=== PATIENT | female | born 1995 | race Caucasian/White ===

== ENCOUNTER 2016-09-01 18:18 | Emergency (ER) | payer OTHER, MEDICAID ==
[~2016-09-01] VITALS: Ht 161.3 cm; Wt 55.8 kg
[~2016-09-01 18:18] MED LIST: BACT800T5 PO; CYCL1TAB29 PO; IBUP800T23 PO
[2016-09-01 18:24] VITALS: BP 103/70; PULSE 83; RESP 16; TEMP 98.5; O2SAT 100
[2016-09-01 18:43] LABS: BLOOD, URINE NEG (NEG); GLUCOSE,URINE NEG (NEG); KETONE, URINE NEG (NEG); NITRITE,URINE NEG (NEG); PH, URINE 6.5 (5.0-8.5)
[2016-09-01 18:49] LABS: BACTERIA, URINE FEW /hpf; COMMENT (UR) CULTURE INDICATED; CULTURE IF INDICATED CULTURE INDICATED; RBC, URINE 0-2 /hpf (0-3); SQUAMOUS EPITHELIAL CELL URINE > 8 /hpf (0-5); URINE COLOR YELLOW (YELLW/STRAW)
--- NOTE | 2016-09-01 19:39 | PD ---
HPI Chief Complaint: Abdominal Pain Time Seen by Provider: 19:30 Travel History International Travel<30 days: No Contact w/Intl Traveler<30days: No Traveled to known affect area: No History of Present Illness HPI 21-year-old female presents to the emergency department by private vehicle for evaluation of lower abdominal pain chest pain and upper back pain. Patient states that she has a history of asthma and ADHD. Patient states last period was 5 weeks ago and a home test yesterday was negative. Patient denies fever chills nausea vomiting sore throat shortness of breath pleuritic pain cough dysuria frequency urgency hematuria or flank pain vaginal discharge or vaginal bleeding. Patient has had nausea. Over the past one week she reportedly has had 3 episodes of nonbilious non-bloody emesis. Patient had a normal bowel movement today. No melena no hematochezia. Patient states that abdominal pain has been today chest pain and back pain occurred prior to arrival to the emergency department. Patient denies use of control pills. Patient does smoke cigarettes. Patient denies personal history family history of clotting disorder. Patient reports that deep breathing and palpation do not aggravate her discomfort. At worst pain has been 8/10 intensity at this time she states it's much better at 7/10 in intensity. Patient did not have a near syncopal or syncopal episode. Patient denies palpitations sweats Or lower extremity numbness tingling or weakness or ataxia of gait. No reported headache visual disturbance change in speech or change in mentation. Patient is unable to identify exacerbating or alleviating factors. Patient denies taking any medications for symptom relief. PFSH Past Medical History Narrative Medical ADHD asthma AB 3 umbilical herniorrhaphy positive tobacco use nursing notes reviewed Medical History: Denies Significant Hx ADHD: Yes Asthma: Yes Diminished Hearing: No Immunizations Current: Yes Tetanus Vaccination: Unknown Influenza Vaccination: No ?: Unknown LMP: 5 weeks ago : 4 Para: 1 Miscarriage: 3 Past Surgical History Abdominal Surgery: Yes (umbilical ) Eye Surgery: Yes (RIGHT EYE) Social History Alcohol Use: No Tobacco Use: Yes (07/21 ppd) Substance Use: No (DENIES) Allergies-Medications (Allergen,Severity, Reaction): Coded Allergies: Amoxicillin (Verified Allergy, Severe, facial swelling, 09/01/16) Penicillin (Verified Allergy, Intermediate, Swelling, 09/01/16) *MDRO Multi-Drug Resistant Organism (Verified Adverse Reaction, Unknown, ) MRSA (arm) - 07/03/16 Reported Meds & Prescriptions Reported Meds & Active Scripts Active Review of Systems Except as stated in HPI: all other systems reviewed are Neg General / Constitutional: No: Fever, Chills HENT: No: Congestion Cardiovascular: Positive: Chest Pain or Discomfort, No: Palpitations, Diaphoresis, Syncope Respiratory: No: Cough, Shortness of Breath, Wheezing Gastrointestinal: Positive: Nausea, Vomiting (x3 x1 week), Abdominal Pain, No : Diarrhea, Hematemesis, Hematochezia, Loss of Appetite Genitourinary: No: Urgency, Frequency, Dysuria, Hematuria, Pelvic Pain, Flank Pain, Discharge, Vaginal Bleeding Musculoskeletal: Positive: Pain (upper back pain), No: Myalgias, Arthralgias Skin: No Rash Neurologic: No: Weakness Psychiatric: No: Anxiety Hematologic/Lymphatic: No: Easy Bruising Physical Exam Narrative GENERAL: Well-developed well-nourished female in no acute distress no respiratory distress SKIN: Warm and dry. HEAD: Atraumatic. Normocephalic. EYES: Pupils equal and round. No scleral icterus. No injection or drainage. ENT: No nasal bleeding or discharge. Mucous membranes pink and moist. Airway is patent. NECK: Trachea midline. No JVD. Supple no meningismus no nuchal rigidity. No tenderness to palpation along the cervical spine. CARDIOVASCULAR: Regular rate and rhythm. Chest wall: Nontender to palpation. RESPIRATORY: No accessory muscle use. Clear to auscultation. Breath sounds equal bilaterally. GASTROINTESTINAL: Abdomen soft, mildly diffusely tender without guarding or rebound, nondistended. Hepatic and splenic margins not palpable. MUSCULOSKELETAL: Extremities without clubbing, cyanosis, or edema. No obvious deformities. NEUROLOGICAL: Awake and alert. No obvious cranial nerve deficits. Motor grossly within normal limits. Five out of 5 muscle strength in the arms and legs. Normal speech. PSYCHIATRIC: Appropriate mood and affect; insight and judgment normal. Data Data Last Documented VS Vital Signs Date Time Temp Pulse Resp B/P Pulse Ox O2 Delivery O2 Flow Rate FiO2 09/01/16 18:24 98.5 83 16 103/70 100 Orders Urinalysis - C+S If Indicated (09/01/16 18:29) Ed Urine Pregnancytest Poc (09/01/16 18:29) Urine Culture (09/01/16 18:35) Basic Metabolic Panel (Bmp) (09/01/16 19:31) Complete Blood Count With Diff (09/01/16 19:31) Iv Access Insert/Monitor (09/01/16 19:31) Oximetry (09/01/16 19:31) Electrocardiogram (09/01/16 19:31) Chest, Single Ap (09/01/16 19:31) Orthostatic Vital Signs (09/01/16 19:31) Labs Laboratory Tests Test 09/01/16 09/01/16 18:35 19:10 Urine Color YELLOW Urine Turbidity SLIGHT Urine pH 6.5 Urine Specific [place] 1.025 Urine Protein NEG mg/dL Urine Glucose (UA) NEG mg/dL Urine Ketones NEG mg/dL Urine Occult Blood NEG Urine Nitrite NEG Urine Bilirubin NEG Urine Leukocyte Esterase TRACE Urine RBC 0-2 /hpf Urine WBC 6-8 /hpf Urine WBC Clumps FEW Urine Squamous Epithelial > 8 /hpf Cells Urine Bacteria FEW /hpf Microscopic Urinalysis Comment CULTURE INDICATED White Blood Count 9.7 TH/MM3 Red Blood Count 4.38 MIL/MM3 Hemoglobin 12.7 GM/DL Hematocrit 37.5 % Mean Corpuscular Volume 85.6 FL Mean Corpuscular Hemoglobin 29.0 PG Mean Corpuscular Hemoglobin 33.9 % Concent Red Cell Distribution Width 14.5 % Platelet Count 232 TH/MM3 Mean Platelet Volume 8.0 FL Neutrophils (%) (Auto) 54.4 % Lymphocytes (%) (Auto) 33.2 % Monocytes (%) (Auto) 5.7 % Eosinophils (%) (Auto) 4.2 % Basophils (%) (Auto) 2.5 % Neutrophils # (Auto) 5.3 TH/MM3 Lymphocytes # (Auto) 3.2 TH/MM3 Monocytes # (Auto) 0.6 TH/MM3 Eosinophils # (Auto) 0.4 TH/MM3 Basophils # (Auto) 0.2 TH/MM3 CBC Comment DIFF FINAL Differential Comment Sodium Level 144 MEQ/L Potassium Level 3.8 MEQ/L Chloride Level 107 MEQ/L Carbon Dioxide Level 30.1 MEQ/L Anion Gap 7 MEQ/L Blood Urea Nitrogen 13 MG/DL Creatinine 0.69 MG/DL Estimat Glomerular Filtration 107 ML/MIN Rate Random Glucose 77 MG/DL Calcium Level 8.6 MG/DL [facility] Medical Decision Making Medical Screen Exam Complete: Yes Emergency Medical Condition: Yes Medical Record Reviewed: Yes Interpretation(s) EKG sinus bradycardia rate [address] elevation or injury pattern change or ectopy noted nonspecific rsr' CBC & BMP Diagram 09/01/16 19:10 Last Impressions Chest X-Ray 09/01/16 193 Signed Impressions: Service Date/Time: Thursday, September 01, 2016 19:39 - CONCLUSION: No acute disease. Clay Mayers MD poc hcg:negative ua: White cells clumped white blood cells bacteria culture indicated Differential Diagnosis Abdominal pain, gastritis, peptic ulcer disease, biliary colic, UTI, partial small bowel obstruction, ectopic , ruptured ovarian cyst, ovarian torsion renal colic, atypical chest pain, pleurisy, gastritis, pneumonia, pneumothorax, ACS, PE Narrative Course Patient with multiple areas of complaints. Past one day and to a lesser extent over the past 5 days with reportedly negative home test. Urinalysis [id number] chest x-ray EKG CBC and metabolic panel studies ordered orthostatics performed [id number] hCG negative; urinalysis shows evidence of white blood cells few bacteria and culture is indicated; patient administer Toradol 30 mg IV Resolved after Toradol patient feels well voices no complaints and no pain; patient is aware of imaging results EKG and lab results and need for oral antibiotic and is stable for outpatient management Diagnosis Primary Impression: UTI (urinary tract infection) Additional Impression: Atypical chest pain Referrals: Primary Care Physician call for appointment Patient Instructions: General Instructions Departure Forms: Tests/Procedures, Work Release Special Instructions: no work x 1 day Additional Instructions: Complete course of antibiotic as prescribed Follow-up with your primary care provider May use acetaminophen/Tylenol every 4 hours as needed for fever 100.4F or greater May use ibuprofen/Advil/Motrin every 6-8 hours as needed for fever 100.4F or greater or for pain associated inflammation Return to the emergency department for any concerns or change in condition Med/Other Pt SpecificInfo: Prescription(s) given Scripts Nitrofurantoin Monohydrate Macrocrystals (Macrobid)100 Mg [id number] Mg PO BID 10 Days Ref 0 Prov:Shanika Gomez MD 09/01/16 Disposition: 01 DISCHARGE HOME Condition: Stable Shanika Gomez MD Sep 01, 2016 19:39
[2016-09-01 19:56] LABS: AUTOMATED NEUTROPHIL # 5.3 TH/MM3 (1.8-7.7); BASOPHIL # 0.2 TH/MM3 (0-0.2); BASOPHIL % 2.5 % (0.0-2.0); EOSINOPHIL # 0.4 TH/MM3 (0-0.4); EOSINOPHIL % 4.2 % (0.0-4.0); HEMATOCRIT 37.5 % (35.0-46.0); HEMO FLAGS DIFF FINAL; LYMPH % 33.2 % (9.0-44.0); LYMPHOCYTE # 3.2 TH/MM3 (1.0-4.8); MEAN CELL VOLUME 85.6 FL (80.0-100.0); MEAN CORPUSCULAR HGB CONC 33.9 % (32.0-36.0); MONO % 5.7 % (0.0-8.0); NEUT % 54.4 % (16.0-70.0); PLATELET COUNT 232 TH/MM3 (150-450); RED BLOOD COUNT 4.38 MIL/MM3 (4.00-5.30); RED CELL DISTRIBUTION WIDTH 14.5 % (11.6-17.2); WHITE BLOOD COUNT 9.7 TH/MM3 (4.0-11.0)
[2016-09-01 20:05] LABS: POTASSIUM 3.8 MEQ/L (3.5-5.1)
--- NOTE | 2016-09-01 20:06 | RADHPO ---
EXAM DATE/TIME: 09/01/2016 19:39 [facility] COMPARISON: CHEST SINGLE AP, June 29, 2015, 19:52. INDICATIONS : Upper back and chest pain since yesterday. MEDICAL HISTORY : None. SURGICAL HISTORY : None. ENCOUNTER: Initial ACUITY: 2 days PAIN SCORE: 10/10 LOCATION: Bilateral chest FINDINGS: A single view of the chest demonstrates the lungs to be symmetrically aerated without evidence of mas s, infiltrate or effusion. The cardiomediastinal contours are unremarkable. There is a mild dextrocu rvature of the thoracic spine. CONCLUSION: No acute disease. Clay Mayers MD on September 01, 2016 at 20:04 Board Certified Radiologist. This report was verified electronically.
[2016-09-01 20:08] LABS: BICARBONATE 30.1 MEQ/L (21.0-32.0)
[2016-09-01 20:15] VITALS: BP_SYST 101; BP_SYST 102; BP_SYST 103; BP_DIAS 58; BP_DIAS 61; BP_DIAS 64; RESP 16
[2016-09-01] MEDS ORDERED: MACR100C2 PO (20:40)
--- NOTE | 2016-09-02 09:26 | EKG ---
Date Performed: 09/01/2016 Time Performed: 19:38:42 PTAGE: 21 years EKG: Sinus bradycardia with sinus arrhythmia. Prolonged QT interval Septal T wave changes are no nspecific Borderline ECG PREVIOUS TRACING : 06/29/2015 19.16 Compared to prior tracing no significant change DOCTOR: Kael Cash Interpretating Date/Time 09/02/2016 09:23:57
== END 2016-09-01 20:48 | disposition home or self-care (01) ==
LOC: PHED 18:18
DX: N39.0 Urinary tract infection, site not specified (principal); R07.89 Other chest pain; M54.6 Pain in thoracic spine; R11.2 Nausea with vomiting, unspecified; R94.31 Abnormal electrocardiogram [ECG] [EKG]; F17.200 Nicotine dependence, unspecified, uncomplicated; Z86.59 Personal history of other mental and behavioral disorders; Z87.09 Personal history of other diseases of the respiratory system
CPT/HCPCS: 71010; 80048; 81001; 84703; 85025; 87086; 93005

== ENCOUNTER 2017-01-30 15:45 | Emergency (ER) | payer MEDICAID ==
[~2017-01-30] VITALS: Ht 160 cm; Wt 56.0 kg
[~2017-01-30 15:45] MED LIST changes: -BACT800T5 PO; -CYCL1TAB29 PO; -IBUP800T23 PO; +MACR100C2 PO
[2017-01-30 15:47] VITALS: BP 96/63; PULSE 67; RESP 16; TEMP 98.2; O2SAT 99
[2017-01-30] MEDS ORDERED: CLIN1CAP5 PO (16:38)
--- NOTE | 2017-01-30 16:40 | PD ---
HPI . possible right upper jaw infection Chief Complaint: Oral / Dental Pain or Problem Time Seen by Provider: 16:40 Travel History International Travel<30 days: No Contact w/Intl Traveler<30days: No Traveled to known affect area: No History of Present Illness HPI 21-year-old female with known dental issues here with complaints of right upper jaw pain. Patient says that she was seen by her dentist and told that she needed 6 extractions, but could not afford them. She was given clindamycin and told to take it until her pain subsides. She had taken with clindamycin and her pain improved, therefore she stopped the medications. Approximately 3 days later the pain has returned and patient is here requesting more antibiotics. Some very mild upper facial swelling. She denies any fever or chills. PFSH Past Medical History ADHD: Yes Asthma: Yes Diminished Hearing: No Immunizations Current: Yes : 4 Para: 1 Miscarriage: 3 Past Surgical History Abdominal Surgery: Yes (umbilical ) Eye Surgery: Yes (RIGHT EYE) Social History Alcohol Use: No Tobacco Use: Yes (1/2 ppd) Substance Use: No (DENIES) Allergies-Medications (Allergen,Severity, Reaction): Coded Allergies: Amoxicillin (Verified Allergy, Severe, facial swelling, 01/30/17) Penicillin (Verified Allergy, Intermediate, Swelling, 01/30/17) *MDRO Multi-Drug Resistant Organism (Verified Adverse Reaction, Unknown, ) MRSA (arm) - 07/03/16 Reported Meds & Prescriptions Reported Meds & Active Scripts Active Ibuprofen 800 Mg Tab 800 Mg PO TID Tramadol (Tramadol HCl) 50 Mg Tab 50 Mg PO Q8H PRN Reported Clindamycin (Clindamycin HCl) 150 Mg Cap 125 Mg PO Q6H Review of Systems General / Constitutional: No: Fever Eyes: No: Visual changes HENT: Positive: Dental Difficulties, No: Headaches Cardiovascular: No: Chest Pain or Discomfort Respiratory: No: Shortness of Breath Gastrointestinal: No: Abdominal Pain Genitourinary: No: Dysuria Musculoskeletal: No: Pain Skin: No Rash Neurologic: No: Weakness Psychiatric: No: Depression Endocrine: No: Polydipsia Hematologic/Lymphatic: No: Easy Bruising Physical Exam Narrative GENERAL: AAO x 3, no acute distress, Well-nourished, well-developed patient. SKIN: Warm and dry. No visible rashes or bruising. HEAD: Normocephalic and atraumatic. EYES: No scleral icterus. No injection or drainage. ENT: No nasal drainage noted. Mucous membranes pink. Airway patent. + 2 cracked and rotting. # 15 also cracked and rotting. no fluid collection, no gum line abn. no definite abscess. NECK: Supple, trachea midline. No JVD. no lymphadenopathy CARDIOVASCULAR: Regular rate and rhythm without murmurs, gallops, or rubs. RESPIRATORY: Breath sounds equal bilaterally. No accessory muscle use. No rhonchi or rales. GASTROINTESTINAL:visual inspection normal EXTREMITIES: No cyanosis or edema. BACK: No obvious deformity. NEURO: CN II-12 intact, PSYCH: AAO x 3, normal affect. Data Data Last Documented VS Vital Signs Date Time Temp Pulse Resp B/P Pulse Ox O2 Delivery O2 Flow Rate FiO2 01/30/17 15:47 98.2 67 16 96/63 99 MDM Medical Decision Making Medical Screen Exam Complete: Yes Emergency Medical Condition: Yes Medical Record Reviewed: Yes Differential Diagnosis Dentalgia, dental caries, less likely oral abscess Narrative Course 21-year-old female with known dental issues here with complaints of tooth pain. exam was done and she does not appear to have any abscessed teeth or active gum infection I've explained to her that she does not need antibiotics as there is no active infection. She needs a dentist for extraction as soon as possible. I provided her with resources for the [facility] dentist. I will provide her with some ibuprofen for inflammation and tramadol for pain control. I've explained to her that this is a temporary fix and ultimately she will need to have these teeth extracted. I discussed with Dr. Saldivar. Patient verbalized understanding of instructions, questions were answered, and thanked me for their care. I advised them if their condition worsens, please return to the nearest emergency room for further care. Diagnosis Primary Impression: Dentalgia Additional Impression: Dental caries Patient Instructions: General Instructions Additional Instructions: You need to see a dentist as soon as possible for removal of these rotting teeth. Try to keep these teeth as clean as possible to reduce the chance of infection. Med/Other Pt SpecificInfo: Prescription(s) given Scripts Ibuprofen 800 Mg [id number] Mg PO TID #21 TAB Prov:Yue Saldivar DO 01/30/17 Tramadol 50 Mg Tab50 Mg PO Q8H PRN (PAIN) #10 TAB Ref 0 Prov:SaldivarYue Johnna DAWKINS 01/30/17 Disposition: 01 DISCHARGE HOME Condition: Stable Denise Escobedo Jan 30, 2017 16:40
[2017-01-30] MEDS ORDERED: TRAM50TA PO (16:48)
[2017-01-30] MEDS ORDERED: IBUP800T23 PO (16:48)
== END 2017-01-30 16:56 | disposition home or self-care (01) ==
LOC: PHED 15:45 → PHEFT 16:56
DX: K08.89 Other specified disorders of teeth and supporting structures (principal); K02.9 Dental caries, unspecified; F17.210 Nicotine dependence, cigarettes, uncomplicated
CPT/HCPCS: 99283

== ENCOUNTER 2017-07-17 21:44 | Emergency (ER) | payer MEDICAID, OTHER ==
[~2017-07-17] VITALS: Ht 160 cm; Wt 53.3 kg
[~2017-07-17 21:44] MED LIST changes: +CLIN150C14 PO; +IBUP1TAB7 PO; -MACR100C2 PO; +TRAM50TA PO
[2017-07-17 21:59] VITALS: BP 133/68; PULSE 69; RESP 18; TEMP 98.6; O2SAT 100
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
[2017-07-17] MEDS ORDERED: ACETAMINOPHEN 500 MG CPLT PO ONE (22:30)
[2017-07-17 22:46] LABS: AUTOMATED NEUTROPHIL # 2.1 TH/MM3 (1.8-7.7); BASOPHIL # 0.1 TH/MM3 (0-0.2); BASOPHIL % 1.4 % (0.0-2.0); EOSINOPHIL # 0.1 TH/MM3 (0-0.4); EOSINOPHIL % 1.4 % (0.0-4.0); HEMATOCRIT 38.4 % (35.0-46.0); HEMOGLOBIN 12.7 GM/DL (11.6-15.3); LYMPH % 48.8 % (9.0-44.0); LYMPHOCYTE # 2.4 TH/MM3 (1.0-4.8); MEAN CELL VOLUME 85.8 FL (80.0-100.0); MEAN CORPUSCULAR HEMOGLOBIN 28.4 PG (27.0-34.0); MEAN CORPUSCULAR HGB CONC 33.1 % (32.0-36.0); MEAN PLATELET VOLUME 7.7 FL (7.0-11.0); MONO % 7.6 % (0.0-8.0); MONOCYTE # 0.4 TH/MM3 (0-0.9); NEUT % 40.8 % (16.0-70.0); PLATELET COUNT 292 TH/MM3 (150-450); RED BLOOD COUNT 4.48 MIL/MM3 (4.00-5.30); RED CELL DISTRIBUTION WIDTH 13.9 % (11.6-17.2); WHITE BLOOD COUNT 5.1 TH/MM3 (4.0-11.0)
[2017-07-17 22:47] LABS: BILIRUBIN, URINE NEG (NEG); BLOOD, URINE NEG (NEG); GLUCOSE,URINE NEG (NEG); KETONE, URINE NEG (NEG); NITRITE,URINE NEG (NEG); URINE LEUKOCYTE ESTERASE NEG (NEG)
--- NOTE | 2017-07-17 22:51 | RADRPT ---
EXAM DATE/TIME: 07/17/2017 22:38 [facility] COMPARISON: CHEST SINGLE AP, September 01, 2016, 19:39. INDICATIONS : Chest pain. MEDICAL HISTORY : Hernia, umbilical SURGICAL HISTORY : None. ENCOUNTER: Initial ACUITY: 1 day PAIN SCORE: 7/10 LOCATION: Bilateral chest FINDINGS: A single view of the chest demonstrates the lungs to be symmetrically aerated without evidence of mas s, infiltrate or effusion. The cardiomediastinal contours are unremarkable. Osseous structures are intact. CONCLUSION: No acute disease. Ángel Solitario MD on July 17, 2017 at 22:49 Board Certified Radiologist. This report was verified electronically.
[2017-07-17 22:53] LABS: URINE COLOR YELLOW (YELLW/STRAW)
[2017-07-17 22:54] LABS: BACTERIA, URINE RARE /hpf; RBC, URINE 0-3 /hpf (0-3)
[2017-07-17 22:55] LABS: CHLORIDE 105 MEQ/L (98-107); SODIUM (NA) 138 MEQ/L (136-145)
[2017-07-17 22:58] LABS: CALCIUM 8.1 MG/DL (8.5-10.1)
[2017-07-17 22:59] LABS: ALBUMIN 3.2 GM/DL (3.4-5.0); BICARBONATE 27.7 MEQ/L (21.0-32.0); BLOOD UREA NITROGEN 10 MG/DL (7-18); GLUCOSE,RANDOM 77 MG/DL (74-106)
[2017-07-17 23:02] LABS: ALT (GPT) 12 U/L (10-53); AST (GOT) 12 U/L (15-37); CREATININE 0.55 MG/DL (0.50-1.00); GLOMERULAR FILTRATION RATE 138 ML/MIN (>89)
[2017-07-17 23:03] LABS: INTERNATIONAL NORMALIZED RATIO 1.1 RATIO; PROTHROMBIN TIME - PATIENT 11.2 SEC (9.8-11.6); TOTAL BILIRUBIN ADULT 0.2 MG/DL (0.2-1.0)
[2017-07-17 23:04] LABS: TOTAL PROTEIN 6.8 GM/DL (6.4-8.2)
[2017-07-17 23:05] LABS: ALKALINE PHOSPHATASE 80 U/L (45-117)
[2017-07-17 23:07] LABS: TROPONIN I LESS THAN 0.02 NG/ML (0.02-0.05)
[2017-07-17] MEDS ORDERED: NITROFURANTOIN MONOHYD MACROCR 100 MG CAP PO ONE (23:15)
[2017-07-17 23:30] VITALS: BP 125/88; PULSE 95; RESP 18; O2SAT 98
[2017-07-17] MEDS ORDERED: MACR100C2 PO (23:45)
[2017-07-18] MEDS ORDERED: OSELTAMIVIR PHOSPHATE 75 MG CAP PO ONE
[2017-07-18] MEDS ORDERED: OSEL75 PO (00:01)
--- NOTE | 2017-07-18 00:41 | RADRPT ---
EXAM DATE/TIME: 07/18/2017 00:10 [facility] COMPARISON: No previous studies available for comparison. INDICATIONS : Pelvic pain. LAB(S): Beta-hC MEDICAL HISTORY : Asthma. Umbilical hernia. SURGICAL HISTORY : Umbilical hernia repair. Right eye surgery. ENCOUNTER: Subsequent ACUITY: 2 days PAIN SCORE: 1/10 LOCATION: Bilateral pelvis MEASUREMENTS: UTERUS: 8.1 x 6.4 x 4.9 cm ENDOMETRIAL STRIPE: 13 mm RIGHT OVARY: 3.2 x 2.0 x 2.0 cm LEFT OVARY: 3.3 x 2.3 x 1.7 cm FREE FLUID: Yes CROWN RUMP LENGTH: 0.5 = 6 WKS 1 DAYS FHR: 130.76 BPM FINDINGS: Gestational sac, yolk sac and pole seen within the uterine cavity. [place]-rump length is approxi mately 4.5 mm which corresponds to a gestational age of 6 weeks one day. heart tones are demons trated. No evidence of hemorrhage. Both ovaries are normal. There small, simple appearing free fluid in the pelvic cul-de-sac. CONCLUSION: 1. Single, viable intrauterine at approximate 6 weeks one day gestational age. No subchorio rosie hemorrhage or other acute complication demonstrated. 2. Normal ultrasound appearance of both ovaries. 3. Small, nonspecific free fluid in the pelvic cavity. Clay Rincon MD on July 18, 2017 at 0:37 Board Certified Radiologist. This report was verified electronically.
[2017-07-18 01:00] VITALS: BP 122/78; PULSE 95; RESP 18; TEMP 98.8; O2SAT 97
--- NOTE | 2017-07-18 01:27 | PD ---
Physical Exam Time Seen by Provider: 01:21 Narrative Left this patient with me to check the results of the ultrasound, other imaging and laboratory work and make a disposition. Data Data Last Documented VS Vital Signs Date Time Temp Pulse Resp B/P (MAP) Pulse Ox O2 Delivery O2 Flow Rate FiO2 07/18/17 01:00 98.8 95 18 122/78 (93) 97 Room Air Orders Orders Complete Blood Count With Diff (07/17/17 22:19) Comprehensive Metabolic Panel (07/17/17 22:19) Urinalysis - C+S If Indicated (07/17/17 22:19) Ed Urine Pregnancytest Poc (07/17/17 22:19) Ckmb (Isoenzyme) Profile (07/17/17 22:19) Prothrombin Time / Inr (Pt) (07/17/17 22:19) Act Partial Throm Time (Ptt) (07/17/17 22:19) Troponin I (07/17/17 22:19) Chest, Single Ap (07/17/17 22:19) Acetaminophen (Tylenol) (07/17/17 22:30) Influenzae A/B Antigen (07/17/17 22:19) Beta Hcg (Quant/Titer) (07/17/17 22:19) Nitrofurantoin Monohyd Macrocr (Macrobid (07/17/17 23:15) Oseltamivir (Tamiflu) (07/18/17 00:00) Us Pelvis (Ques Preg/Ectopic) (07/18/17 ) Electrocardiogram (07/18/17 01:08) Labs Laboratory Tests Test 07/17/17 22:32 White Blood Count 5.1 TH/MM3 Red Blood Count 4.48 MIL/MM3 Hemoglobin 12.7 GM/DL Hematocrit 38.4 % Mean Corpuscular Volume 85.8 FL Mean Corpuscular Hemoglobin 28.4 PG Mean Corpuscular Hemoglobin Concent 33.1 % Red Cell Distribution Width 13.9 % Platelet Count 292 TH/MM3 Mean Platelet Volume 7.7 FL Neutrophils (%) (Auto) 40.8 % Lymphocytes (%) (Auto) 48.8 % Monocytes (%) (Auto) 7.6 % Eosinophils (%) (Auto) 1.4 % Basophils (%) (Auto) 1.4 % Neutrophils # (Auto) 2.1 TH/MM3 Lymphocytes # (Auto) 2.4 TH/MM3 Monocytes # (Auto) 0.4 TH/MM3 Eosinophils # (Auto) 0.1 TH/MM3 Basophils # (Auto) 0.1 TH/MM3 CBC Comment DIFF FINAL Differential Comment Prothrombin Time 11.2 SEC Prothromb Time International Ratio 1.1 RATIO Activated Partial Thromboplast Time 30.2 SEC Urine Color YELLOW Urine Turbidity SLIGHT Urine pH 7.0 Urine Specific [place] 1.029 Urine Protein NEG mg/dL Urine Glucose (UA) NEG mg/dL Urine Ketones NEG mg/dL Urine Occult Blood NEG Urine Nitrite NEG Urine Bilirubin NEG Urine Leukocyte Esterase NEG Urine RBC 0-3 /hpf Urine WBC 3-5 /hpf Urine Squamous Epithelial Cells 6-8 /hpf Urine Bacteria RARE /hpf Microscopic Urinalysis Comment CULT NOT INDICATED Blood Urea Nitrogen 10 MG/DL Creatinine 0.55 MG/DL Random Glucose 77 MG/DL Total Protein 6.8 GM/DL Albumin 3.2 GM/DL Calcium Level 8.1 MG/DL Alkaline Phosphatase 80 U/L Aspartate Amino Transf (AST/SGOT) 12 U/L Alanine Aminotransferase (ALT/SGPT) 12 U/L Total Bilirubin 0.2 MG/DL Sodium Level 138 MEQ/L Potassium Level 3.7 MEQ/L Chloride Level 105 MEQ/L Carbon Dioxide Level 27.7 MEQ/L Anion Gap 5 MEQ/L Estimat Glomerular Filtration Rate 138 ML/MIN Total Creatine Kinase 35 U/L Troponin I LESS THAN 0.02 NG/ML Human Chorionic Gonadotropin, Quant 23787 MIU/ML [facility] Medical Record Reviewed: Yes Supervised Visit with BARBARA: No Interpretation(s) The ultrasound of the pelvis shows single viable intrauterine at approximately 6 weeks and 1 day gestational age. No subchorionic hemorrhage or other acute complication demonstrated. There is a normal ultrasound appearance of both ovaries and small nonspecific free fluid in the pelvic cavity. The APTT is 30.2 but the rest of the coagulation profile is normal. The influenza A /B antigen is positive for flu a and antigen. The chest x-ray shows no acute disease. The urine is normal and culture is not indicated. The complete metabolic profile shows an albumin of 3.2, calcium 8.1 but is otherwise normal. The cardiac enzymes are normal. The beta-hCG is 22,217. The CBC is normal. The EKG shows sinus rhythm with no acute ST elevation or depression. The rate is 61. Differential Diagnosis Threatened AB, urinary tract infection, flu syndrome, viral syndrome, anemia, cardiac dysrhythmia, electrolyte disorder, acute coronary syndrome, pneumothorax , coagulopathy, ectopic Narrative Course The patient has a flu syndrome, influenza A as well as an intrauterine 6 weeks. 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 Take Macrobid as prescribed. Return to the emergency department for worsening symptoms or any other concerns. Scripts Oseltamivir (Tamiflu) 75 Mg Cap 75 MG PO BID for Mgmt Viral Infection for 5 Days, #10 CAP 0 Refills Prov: Fish Quiñonez MD 07/18/17 Nitrofurantoin Monohydrate Macrocrystals (Macrobid) 100 Mg Cap 100 MG PO BID for Infection for 7 Days, #14 CAP 0 Refills Prov: Fish Quiñonez MD 07/17/17 Disposition: 01 DISCHARGE HOME Condition: Stable Saúl Dunaway MD Jul 18, 2017 01:27
--- NOTE | 2017-07-18 22:29 | EKG ---
Date Performed: 07/17/2017 Time Performed: 21:58:42 PTAGE: 22 years EKG: Sinus rhythm POSSIBLE RIGHT VENTRICULAR CONDUCTION DELAY BORDERLINE ECG Compared to the PREVIOUS TRACING from 09/01/16, no significant change DOCTOR: Ricky Hassan Interpretating Date/Time 07/18/2017 22:28:18
== END 2017-07-18 01:35 | disposition home or self-care (01) ==
LOC: PHED 21:44
DX: O98.511 Other viral diseases complicating pregnancy, first trimester (principal); J10.1 Influenza due to other identified influenza virus with other respiratory manifestations; O26.891 Other specified pregnancy related conditions, first trimester; R82.71 Bacteriuria; O99.331 Smoking (tobacco) complicating pregnancy, first trimester; F17.210 Nicotine dependence, cigarettes, uncomplicated; O99.511 Diseases of the respiratory system complicating pregnancy, first trimester; J45.909 Unspecified asthma, uncomplicated; Z3A.01 Less than 8 weeks gestation of pregnancy
CPT/HCPCS: 71010; 76700; 80053; 81001; 82550; 84484; 84702; 84703; 85025; 85610; 85730; 87804; 93005

== ENCOUNTER 2017-08-03 10:06 | Emergency (ER) | payer OTHER ==
[~2017-08-03 10:06] MED LIST changes: +MACR100C2 PO; +OSEL75 PO
[2017-08-03 10:10] VITALS: BP 112/68; PULSE 119; RESP 20; TEMP 99.6; O2SAT 99
--- NOTE | 2017-08-03 12:05 | PD ---
HPI Chief Complaint: Musculoskeletal Complaint Time Seen by Provider: 11:57 Travel History International Travel<30 days: No Contact w/Intl Traveler<30days: No Traveled to known affect area: No History of Present Illness HPI This 22-year-old female is complaining of sore throat and knee pain. Says the throat started hurting yesterday. Both knees are hurting today. She's had fever. She had a miscarriage the second of this month was seen at [facility] and given pills to clean her out. She says she is definitely not now. She has trouble swallowing PFSH Past Medical History ADHD: Yes Asthma: Yes Diminished Hearing: No Immunizations Current: Yes : 7 Para: 1 Miscarriage: 5 Past Surgical History Abdominal Surgery: Yes (umbilical HERNIA) Eye Surgery: Yes (RIGHT EYE) Social History Alcohol Use: No Tobacco Use: Yes (07/21 ppd) Substance Use: No (DENIES) Allergies-Medications (Allergen,Severity, Reaction): Coded Allergies: amoxicillin (Unverified Allergy, Severe, facial swelling, 08/03/17) penicillin G (Unverified Allergy, Intermediate, Swelling, 08/03/17) *MDRO Multi-Drug Resistant Organism (Verified Adverse Reaction, Unknown, ) MRSA (arm) - 07/03/16 Reported Meds & Prescriptions Reported Meds & Active Scripts Active No Active Prescriptions or Reported Medications Review of Systems General / Constitutional: Positive: Fever, Chills Eyes: No: Diploplia, Blurred Vision HENT: No: Headaches, Vertigo Cardiovascular: No: Chest Pain or Discomfort, Palpitations Respiratory: Positive: Cough, No: Shortness of Breath Gastrointestinal: No: Nausea, Vomiting Genitourinary: No: Urgency, Frequency Musculoskeletal: Positive: Myalgias, Arthralgias Skin: No Rash, No Itching Neurologic: No: Dizziness Hematologic/Lymphatic: No: Easy Bruising Physical Exam Narrative GENERAL: Well-developed female SKIN: Focused skin assessment warm/dry. HEAD: Atraumatic. Normocephalic. EYES: Pupils equal and round. No scleral icterus. No injection or drainage. ENT: No nasal bleeding or discharge. Mucous membranes pink and moist. Pharynx is erythematous with yellow exudate NECK: Trachea midline. No JVD. CARDIOVASCULAR: Regular rate and rhythm. No murmur appreciated. RESPIRATORY: No accessory muscle use. Clear to auscultation. Breath sounds equal bilaterally. GASTROINTESTINAL: Abdomen soft, non-tender, nondistended. Hepatic and splenic margins not palpable. MUSCULOSKELETAL: No obvious deformities. No clubbing. No cyanosis. No edema. Examination of both knees shows some periarticular tenderness. There is no erythema or fluid in either knee NEUROLOGICAL: Awake and alert. No obvious cranial nerve deficits. Motor grossly within normal limits. Normal speech. PSYCHIATRIC: Appropriate mood and affect; insight and judgment normal. Data Data Last Documented VS Vital Signs Date Time Temp Pulse Resp B/P (MAP) Pulse Ox O2 Delivery O2 Flow Rate FiO2 08/03/17 10:10 99.6 119 20 112/68 (83) 99 Orders Orders Group A Rapid Strep Screen (08/03/17 12:01) Influenzae A/B Antigen (08/03/17 12:01) Acetaminophen (Tylenol) (08/03/17 12:15) Ibuprofen (Motrin) (08/03/17 12:15) Strep Culture (Group A) (08/03/17 12:08) MDM Medical Decision Making Medical Screen Exam Complete: Yes Emergency Medical Condition: Yes Medical Record Reviewed: Yes Differential Diagnosis Differential includes strep throat, influenza, viral syndrome Narrative Course Test for strep is negative. Tests for influenza is also negative. Patient will be released with recommendations for Tylenol and Motrin for fever. She is to be off work for several days Diagnosis Primary Impression: Viral pharyngitis Departure Forms: Tests/Procedures, Work Release Enter return to work date: Aug 06, 2017 Additional Instructions: Take Tylenol or Motrin for fever Scripts No Active Prescriptions or Reported Meds Disposition: 01 DISCHARGE HOME Condition: [place] MD Aug 03, 2017 12:05
[2017-08-03] MEDS ORDERED: IBUPROFEN 600 MG TAB PO ONE (12:15)
[2017-08-03] MEDS ORDERED: ACETAMINOPHEN 325 MG TAB PO ONE (12:15)
[2017-08-03 13:11] VITALS: BP 98/58
== END 2017-08-03 13:12 | disposition home or self-care (01) ==
LOC: PHED 10:06
DX: J02.0 Streptococcal pharyngitis (principal); B95.4 Other streptococcus as the cause of diseases classified elsewhere; F90.9 Attention-deficit hyperactivity disorder, unspecified type; J45.909 Unspecified asthma, uncomplicated; F17.210 Nicotine dependence, cigarettes, uncomplicated; Z88.0 Allergy status to penicillin
CPT/HCPCS: 87081; 87804; 87880; 99283

== ENCOUNTER 2017-08-31 10:01 | Emergency (ER) | payer OTHER ==
[~2017-08-31] VITALS: Ht 160 cm; Wt 55.0 kg
[2017-08-31 10:03] VITALS: BP 111/65; PULSE 109; RESP 14; TEMP 97.6; O2SAT 100
[2017-08-31 11:06] VITALS: BP 93/55; PULSE 63; RESP 17; O2SAT 100
[2017-08-31] MEDS ORDERED: SODIUM CHLOR 0.9% 1000 ML INJ 1,000 ML IV ONE (11:42)
--- NOTE | 2017-08-31 11:42 | PD ---
HPI Chief Complaint: Bleeding Time Seen by Provider: 11:17 Travel History International Travel<30 days: No Contact w/Intl Traveler<30days: No Traveled to known affect area: No History of Present Illness HPI 22-year-old female presents emergency department with vaginal bleeding and pelvic pain. Patient reports last menstrual period prior to several days ago was June 16. Patient states approximately 3 days ago she started having cramping and vaginal bleeding. She was seen at [facility] yesterday, and reportedly her hCG was 2100, and they did an ultrasound showing "blood inside the uterus." Patient was reportedly given 8 pills to take to help pass the products of conception. She does not recall the name of the medication. She comes in today with ongoing vaginal bleeding with at least one pad an hour and passing clots. Patient also complaining of lower abdominal/pelvic pain of an 8 out of 10. She denies nausea, vomiting, fever, or other symptoms. Patient is allergic to amoxicillin and penicillin. She has a history of MRSA. [facility] Past Medical History ADHD: Yes Asthma: Yes Bipolar Disorder: Yes Diminished Hearing: No Immunizations Current: Yes Tetanus Vaccination: Unknown Influenza Vaccination: No ?: Not LMP: CURRENT : 7 Para: 1 Miscarriage: 5 Past Surgical History Abdominal Surgery: Yes (umbilical HERNIA) Eye Surgery: Yes (RIGHT EYE) Social History Alcohol Use: Yes (occass) Tobacco Use: Yes (/2 ppd) Substance Use: Yes (MARIJUANA OCC) Allergies-Medications (Allergen,Severity, Reaction): Coded Allergies: amoxicillin (Unverified Allergy, Severe, facial swelling, 08/31/17) penicillin G (Unverified Allergy, Intermediate, Swelling, 08/31/17) *MDRO Multi-Drug Resistant Organism (Verified Adverse Reaction, Unknown, ) MRSA (arm) - 07/03/16 Reported Meds & Prescriptions Reported Meds & Active Scripts Active No Active Prescriptions or Reported Medications Review of Systems Except as stated in HPI: all other systems reviewed are Neg General / Constitutional: No: Fever, Chills Eyes: No: Visual changes HENT: No: Headaches Cardiovascular: No: Chest Pain or Discomfort Respiratory: No: Shortness of Breath Gastrointestinal: No: Abdominal Pain Genitourinary: Positive: Pelvic Pain, Vaginal Bleeding, No: Urgency, Frequency , Dysuria Musculoskeletal: No: Pain Skin: No Rash Neurologic: No: Weakness Psychiatric: No: Depression Endocrine: No: Polydipsia Hematologic/Lymphatic: No: Easy Bruising Physical Exam Narrative GENERAL: Patient appears in mild distress. SKIN: Warm and dry. Normal color. Normal turgor. HEAD: Atraumatic. Normocephalic. EYES: Pupils equal and round. No scleral icterus. No injection or drainage. ENT: No nasal bleeding or discharge. Mucous membranes pink and moist. Pharynx is clear. Airways patent. NECK: Trachea midline. Supple and nontender. CARDIOVASCULAR: Regular rate and rhythm. No murmurs gallops or rubs. RESPIRATORY: No accessory muscle use. Clear to auscultation. Breath sounds equal bilaterally. GASTROINTESTINAL: Abdomen soft, moderate suprapubic tenderness, nondistended. No CVA tenderness. Hepatic and splenic margins not palpable. Pelvic exams performed with nursing staff in attendance, showing seth blood in the vaginal vault, loss appears to be open without obvious products of conception noted. There are several clots noted to be in the vagina. MUSCULOSKELETAL: Extremities without clubbing, cyanosis, or edema. No obvious deformities. NEUROLOGICAL: Awake and alert. No obvious cranial nerve deficits. Motor grossly within normal limits. Five out of 5 muscle strength in the arms and legs. Normal speech. PSYCHIATRIC: Appropriate mood and affect; insight and judgment normal. Data Data Last Documented VS Vital Signs Date Time Temp Pulse Resp B/P (MAP) Pulse Ox O2 Delivery O2 Flow Rate FiO2 08/31/17 11:06 17 08/31/17 11:06 63 93/55 (68) 100 Room Air 08/31/17 10:03 97.6 Orders Orders Complete Blood Count With Diff (08/31/17 11:42) Comprehensive Metabolic Panel (08/31/17 11:42) Complete Rh (08/31/17 11:42) Type And Screen (08/31/17 11:42) Iv Access Insert/Monitor (08/31/17 11:42) Sodium Chloride 0.9% Flush (Ns Flush) (08/31/17 11:45) Sodium Chlor 0.9% 1000 Ml Inj (Ns 1000 M (08/31/17 11:42) Ondansetron Inj (Zofran Inj) (08/31/17 11:45) Morphine Inj (Morphine Inj) (08/31/17 11:45) Us Pelvis Comp Door Assembler/Non-Preg (08/31/17 11:48) Beta Hcg (Quant/Titer) (08/31/17 12:01) Labs Laboratory Tests Test 08/31/17 12:01 White Blood Count 6.0 TH/MM3 Red Blood Count 3.47 MIL/MM3 Hemoglobin 10.2 GM/DL Hematocrit 29.8 % Mean Corpuscular Volume 85.8 FL Mean Corpuscular Hemoglobin 29.3 PG Mean Corpuscular Hemoglobin Concent 34.2 % Red Cell Distribution Width 15.1 % Platelet Count 252 TH/MM3 Mean Platelet Volume 8.1 FL Neutrophils (%) (Auto) 55.8 % Lymphocytes (%) (Auto) 31.6 % Monocytes (%) (Auto) 6.8 % Eosinophils (%) (Auto) 5.1 % Basophils (%) (Auto) 0.7 % Neutrophils # (Auto) 3.4 TH/MM3 Lymphocytes # (Auto) 1.9 TH/MM3 Monocytes # (Auto) 0.4 TH/MM3 Eosinophils # (Auto) 0.3 TH/MM3 Basophils # (Auto) 0.0 TH/MM3 CBC Comment DIFF FINAL Differential Comment Blood Urea Nitrogen 11 MG/DL Creatinine 0.58 MG/DL Random Glucose 74 MG/DL Total Protein 6.4 GM/DL Albumin 3.2 GM/DL Calcium Level 8.4 MG/DL Alkaline Phosphatase 73 U/L Aspartate Amino Transf (AST/SGOT) 7 U/L Alanine Aminotransferase (ALT/SGPT) 9 U/L Total Bilirubin 0.2 MG/DL Sodium Level 138 MEQ/L Potassium Level 3.8 MEQ/L Chloride Level 107 MEQ/L Carbon Dioxide Level 26.4 MEQ/L Anion Gap 5 MEQ/L Estimat Glomerular Filtration Rate 130 ML/MIN Human Chorionic Gonadotropin, Quant 9 MIU/ML [facility] Medical Decision Making Medical Screen Exam Complete: Yes Emergency Medical Condition: Yes Differential Diagnosis Miscarriage. Vaginal bleeding. Possible retained products of conception. Anemia. Narrative Course Patient is medically stable at time of exam. Labs ordered including CBC, CMP, type and screen, and Rh factor. IV access is obtained and the patient is given 1000 mL normal saline bolus. Patient is given 4 mg Zofran as well as 2 mg morphine IV. Ultrasound is ordered to evaluate for retained products of conception. CBC unremarkable except for hemoglobin of 10.2, hematocrit of 29.8. Platelets are normal at 252. Chemistries show no acute findings except for calcium is 8.4, AST is 7, ALT is 9 , albumin is 3.2, HCG quantitative is 9. Ultrasound shows: CONCLUSION: 1. Heterogeneous prominent endometrium with increased vascularity could be related to retained products of conception. Close interval followup. 2. Echogenic lesion left ovary likely small hemorrhagic cyst measuring 1 cm. 3. Dominant follicle left ovary measures 15 mm. Patient is stable for discharge. Patient reportedly already had a RhoGam shot, and methyl progesterone. Patient is to go home, be at bedrest, and follow-up with the [facility]. Patient should expect her vaginal bleeding to decrease in the next 24-48 hours. Patient can return to emergency department with worsening symptoms at any time as needed. Diagnosis Primary Impression: Miscarriage Additional Impression: Vaginal bleeding Referrals: [facility] call for appointment Patient Instructions: Dysfunctional Uterine Bleeding (ED), General Instructions , Miscarriage (ED) Additional Instructions: CBC unremarkable except for hemoglobin of 10.2, hematocrit of 29.8. Platelets are normal at 252. Chemistries show no acute findings except for calcium is 8.4, AST is 7, ALT is 9 , albumin is 3.2, HCG quantitative is 9. Ultrasound shows: CONCLUSION: 1. Heterogeneous prominent endometrium with increased vascularity could be related to retained products of conception. Close interval followup. 2. Echogenic lesion left ovary likely small hemorrhagic cyst measuring 1 cm. 3. Dominant follicle left ovary measures 15 mm. Patient is stable for discharge. Patient reportedly already had a RhoGam shot, and methyl progesterone. Patient is to go home, be at bedrest, and follow-up with the women's center. Patient should expect her vaginal bleeding to decrease in the next 24-48 hours. Patient can return to emergency department with worsening symptoms at any time as needed. Med/Other Pt SpecificInfo: Prescription(s) given Scripts No Active Prescriptions or Reported Meds Disposition: 01 DISCHARGE HOME Condition: Stable Santy Winston Aug 31, 2017 11:42
[2017-08-31] MEDS ORDERED: ONDANSETRON HCL 4 MG/2 ML VIAL IVP ONE (11:45)
[2017-08-31] MEDS ORDERED: MORPHINE SULFATE 2 MG/ML INJ IV PUSH ONE (11:45)
[2017-08-31] MEDS ORDERED: SODIUM CHLORIDE 0.9% FLUSH 10 ML FLUSH IVF PRN (11:45)
[2017-08-31 12:21] LABS: AUTOMATED NEUTROPHIL # 3.4 TH/MM3 (1.8-7.7); BASOPHIL % 0.7 % (0.0-2.0); EOSINOPHIL # 0.3 TH/MM3 (0-0.4); EOSINOPHIL % 5.1 % (0.0-4.0); HEMATOCRIT 29.8 % (35.0-46.0); HEMOGLOBIN 10.2 GM/DL (11.6-15.3); LYMPH % 31.6 % (9.0-44.0); LYMPHOCYTE # 1.9 TH/MM3 (1.0-4.8); MEAN CELL VOLUME 85.8 FL (80.0-100.0); MEAN CORPUSCULAR HEMOGLOBIN 29.3 PG (27.0-34.0); MEAN CORPUSCULAR HGB CONC 34.2 % (32.0-36.0); MEAN PLATELET VOLUME 8.1 FL (7.0-11.0); MONO % 6.8 % (0.0-8.0); MONOCYTE # 0.4 TH/MM3 (0-0.9); NEUT % 55.8 % (16.0-70.0); PLATELET COUNT 252 TH/MM3 (150-450); RED BLOOD COUNT 3.47 MIL/MM3 (4.00-5.30); RED CELL DISTRIBUTION WIDTH 15.1 % (11.6-17.2)
[2017-08-31 12:39] LABS: ALBUMIN 3.2 GM/DL (3.4-5.0); AST (GOT) 7 U/L (15-37); BICARBONATE 26.4 MEQ/L (21.0-32.0); BLOOD UREA NITROGEN 11 MG/DL (7-18); CALCIUM 8.4 MG/DL (8.5-10.1); CHLORIDE 107 MEQ/L (98-107); CREATININE 0.58 MG/DL (0.50-1.00); GLOMERULAR FILTRATION RATE 130 ML/MIN (>89); GLUCOSE,RANDOM 74 MG/DL (74-106); SODIUM (NA) 138 MEQ/L (136-145)
[2017-08-31 12:40] LABS: ALT (GPT) 9 U/L (10-53)
[2017-08-31 12:44] LABS: ALKALINE PHOSPHATASE 73 U/L (45-117); TOTAL BILIRUBIN ADULT 0.2 MG/DL (0.2-1.0); TOTAL PROTEIN 6.4 GM/DL (6.4-8.2)
--- NOTE | 2017-08-31 12:59 | RADRPT ---
EXAM DATE/TIME: 08/31/2017 12:09 [facility] COMPARISON: No previous studies available for comparison. INDICATIONS : Pelvic Pain and Vaginal Bleeding. MEDICAL HISTORY : Alzheimer's Asthma. ADHD. Bi-Polar Disorder. Alcohol and Subtance Use. Tobacco Use. SURGICAL HISTORY : Right Eye Surgery. Umbilical Hernia Repair. ENCOUNTER: Subsequent ACUITY: 1 month PAIN SCORE: 6/10 LOCATION: Bilateral pelvis MEASUREMENTS: UTERUS: 8.4 x 5.3 x 4.7 cm ENDOMETRIAL STRIPE: 13 mm RIGHT OVARY: 5.1 x 2.8 x 2.5 cm LEFT OVARY: 5.0 x 2.7 x 2.5 cm FINDINGS: UTERUS: Heterogeneous thickened endometrium with increased vascularity. RIGHT OVARY: Ovary contains no mass or significant cystic lesion. LEFT OVARY: Dominant follicle measures 15 mm. Echogenic lesion measures 10 x 6 x 8 mm. MISCELLANEOUS: No free fluid. CONCLUSION: 1. Heterogeneous prominent endometrium with increased vascularity could be related to retained produc ts of conception. Close interval followup. 2. Echogenic lesion left ovary likely small hemorrhagic cyst measuring 1 cm. 3. Dominant follicle left ovary measures 15 mm. Alexi Alaniz MD on August 31, 2017 at 12:54 Board Certified Radiologist. This report was verified electronically.
[2017-08-31 14:07] VITALS: BP 93/54
== END 2017-08-31 14:06 | disposition home or self-care (01) ==
LOC: NEPD 10:01
DX: O03.9 Complete or unspecified spontaneous abortion without complication (principal); N93.9 Abnormal uterine and vaginal bleeding, unspecified; J45.909 Unspecified asthma, uncomplicated; F31.9 Bipolar disorder, unspecified; F17.210 Nicotine dependence, cigarettes, uncomplicated
CPT/HCPCS: 76856; 80053; 84702; 85025; 86077; 86850; 86870; 86900; 86901; 96361; 96374; 96375; 99284; J2270; J2405; J7030